=== PATIENT | male | born 1990 | race Caucasian/White ===

== ENCOUNTER 2024-10-28 17:20 | Emergency (ER) | payer BC ==
[~2024-10-28] VITALS: Ht 167.6 cm; Wt 63.5 kg
[2024-10-28] MEDS ORDERED: LIDOCAINE HCL/MPF 1% 30 ML VIAL IJ ONE (17:41)
[2024-10-28] MEDS: LIDOCAINE HCL/PF 1% 30 ML VIAL TP ONE (17:45)
[2024-10-28 18:33] VITALS: BP 138/83; TEMP 98.3; O2SAT 99
== END 2024-10-28 18:33 | disposition home or self-care (01) ==
LOC: ER 17:33
DX: S61.412A Laceration without foreign body of left hand, initial encounter (principal); W26.8XXA Contact with other sharp object(s), not elsewhere classified, initial encounter; Y93.39 Activity, other involving climbing, rappelling and jumping off; Y92.89 Other specified places as the place of occurrence of the external cause; Y99.8 Other external cause status
CPT/HCPCS: 99282; 12002; J3490 ×2; A6403 ×2